=== PATIENT | female | born 1975 | race Caucasian/White ===

== ENCOUNTER 2018-03-31 20:04 | Emergency (ER) | payer OTHER ==
--- NOTE | 2018-03-31 20:11 | PDOC ---
Attending Attestation - HPI HPI: 03/31/18 20:53 The patient is a 42 year old female, with a significant PMH of breast cancer s/ p lumpectomy (last chemotherapy yesterday), who presents to the emergency department with diffuse body aches, nausea with vomiting (non bloody, non bilious), dysuria, chills, non productive cough, and constipation. The patient states her body aches are worse in the lower abdomen and upper thighs bilaterally. The patient states her symptoms feel similar to past UTI. The patient reports she has been taking Zofran 8 mg prescribed from her chemotherapy. The patient also reports taking 600 mg Ibuprofen for her body aches with last dose approx 2 hours ago. The patient denies chest pain, palpitations, shortness of breath, headache, dizziness, lightheadedness, measured fever, diarrhea, melena or hematochezia. Denies frequency, urgency and hematuria. Allergies: NKA - Physicial Exam PE: 03/31/18 20:54 GENERAL: Awake, alert, and fully oriented, in no acute distress HEAD: No signs of trauma EYES: PERRLA, EOMI, sclera anicteric, conjunctiva clear ENT: Auricles normal inspection, hearing grossly normal, nares patent, oropharynx clear without exudates. Moist mucosa NECK: Normal ROM, supple, no lymphadenopathy, JVD, or masses LUNGS: Breath sounds equal, clear to auscultation bilaterally. No wheezes, and no crackles HEART: Regular rate and rhythm, normal S1 and S2, no murmurs, rubs or gallops ABDOMEN: Soft, nontender, normoactive bowel sounds. No guarding, no rebound. No masses EXTREMITIES: Normal range of motion, no edema. No clubbing or cyanosis. No cords, erythema, or tenderness NEUROLOGICAL: Cranial nerves II through XII grossly intact. Normal speech, normal gait SKIN: Warm, Dry, normal turgor, no rashes or lesions noted. <Addy Jiang - Last Filed: 03/31/18 20:53> - Resident Resident Name: Aixa Guzman - ED Attending Attestation I have performed the following: I have examined & evaluated the patient, The case was reviewed & discussed with the resident, I agree w/resident's findings & plan - Medical Decision Making 03/31/18 21:39 Pt's CXR is normal; port is in place. Labs are normal except for leukopenia which is likely due to chemo. 03/31/18 23:34 Pt's lockstitch hemmer is Zachary Mancera [phone] 04/01/18 00:26 I spoke to the senior [employer] consultant doc, who recommends pain management overnight in the ER. call specialist doctor Beckie states that he thinks the patient must be having an adverse reaction to her chemo, and that body aches and pains are not a usual event with chemo. We discussed that the pain is impoved and that labs are normal, except for low WBC count, which he agrees is to be expected with chemo. US normal, pt iis having lower abd pain and we will get a sono of her ovaries and pelvis. 04/01/18 00:37 Patient Name: ROSY QUEZADA THIS IS A PRELIMINARY REPORT FROM [facility]RIGATION OPERATOR DATE OF SERVICE: 2018-03-31 23:46:28 IMAGES: 50 EXAM: Endovaginal pelvic ultrasound and pelvic duplex HISTORY: Lower abdominal pain COMPARISON: None. FINDINGS: Endovaginal pelvic ultrasound:Uterus is anteverted and measures 8.6centimeters in length. The endometrium is 5millimeters in thickness which is normal. There are 1.8 cm and 1.7 cm posterior fundal intramural fibroids. The right ovary measures 3.1centimeters in length, appears normal and demonstrates normal flow. Left ovary measures 2.8centimeters in length appears normal demonstrates normal flow. There is no significant free fluid. Pelvic duplex: There is normal arterial and venous flow in both ovaries. IMPRESSION: Small intramural fibroids. No acute pathology. <Merle Nino - Last Filed: 04/01/18 00:37> Attestations - Attestations 03/31/18 20:54 Documentation prepared by Addy Jiang, acting as medical assisting instructor for Merle Nino MD. <Addy Jiang - Last Filed: 03/31/18 20:53>
[2018-03-31] MEDS ORDERED: SODIUM CHLORIDE 0.9% 500 ML INFUS.BAG IV ONE (20:27)
[2018-03-31] MEDS ORDERED: ACETAMINOPHEN 1000 MG/100 ML VIAL (NON FORMULARY) IVPB ONE (20:30)
--- NOTE | 2018-03-31 20:34 | PDOC ---
History of Present Illness - General Chief Complaint: Pain Stated Complaint: FATIGUE/HEADACHE Time Seen by Provider: 03/31/18 20:10 History Source: Patient Exam Limitations: No Limitations - History of Present Illness Initial Comments: This is a 42 YOF with h/o breast CA s/p lumpectomy and now on chemo (doxorubicin /cyclophosphamide/paclitaxel with last dose XXX, followed by XXX at [facility]) who p/w nausea, vomiting, chills, nonproductive cough, constipation (but last BM was today and normal), burning on urination, and all- over body aches worse in her lower abdomen and the front of both thighs. She denies any measured fever, black/bloody stool, headache, dizziness, lightheadedness, chest pain, SOB, or other symptoms. She has been taking Zofran 8 mg as prescribed for her chemo-related n/v. 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 Past History - Past Medical History Allergies/Adverse Reactions: Allergies Allergy/AdvReac Type Severity Reaction Status Date / Time No Known Allergies Allergy Verified 03/31/18 20:07 Home Medications: Ambulatory Orders Oxycodone HCl/Acetaminophen [Percocet 5/325 -] 1 tab PO Q6H #20 tablet MDD 4 01/12 - Suicide/Smoking/Psychosocial Hx Smoking History: Never smoked Hx Alcohol Use: No Drug/Substance Use Hx: No Review of Systems - Review of Systems Able to Perform ROS?: Yes Constitutional: Yes: Chills, Malaise, Other (all-over body aches). No: Fever, Unexplained wgt Loss HEENTM: No: Nose Congestion, Throat Pain Respiratory: Yes: Cough. No: Shortness of Breath Cardiac (ROS): No: Chest Pain, Palpitations ABD/GI: Yes: Constipated, Nausea, Vomiting, Other (lower abdominal pain). No: Diarrhea : Yes: Burning, Dysuria Musculoskeletal: No: Back Pain, Neck Pain Integumentary: No: Bruising, Rash Neurological: No: Headache, Numbness, Tingling, Weakness, Dizziness Endocrine: No: Unexplained Weight Gain, Unexplained Weight Loss *Physical Exam - Vital Signs Last Vital Signs Temp Pulse Resp BP Pulse Ox 98.3 F 90 20 104/80 98 03/31/18 20:05 08/04/18 20:05 03/31/18 20:05 03/31/18 20:05 03/31/18 20:05 - Physical Exam General Appearance: Yes: Nourished, Appropriately Dressed, Other (nontoxic and generally well appearing adult female who is answering appropriately and accompanied by family, alopecia from chemo). No: Apparent Distress HEENT: positive: EOMI, AIXA, Normal ENT Inspection, Normal Voice, Hearing Grossly Normal. negative: Scleral Icterus (R), Scleral Icterus (L), Nasal Congestion Neck: positive: Trachea midline, Supple. negative: Tender, Rigid Respiratory/Chest: positive: Lungs Clear, Normal Breath Sounds. negative: Respiratory Distress, Crackles, Rhonchi, Stridor, Wheezing Cardiovascular: positive: Regular Rhythm, Regular Rate, S1, S2. negative: Edema , JVD, Murmur Gastrointestinal/Abdominal: positive: Normal Bowel Sounds, Tender (minimal suprapubic ttp), Flat, Soft. negative: Organomegaly, Pulsatile Mass, Guarding Musculoskeletal: positive: Normal Inspection. negative: Decreased Range of Motion, Vertebral Tenderness Extremity: positive: Normal Capillary Refill, Normal Inspection, Normal Range of Motion. negative: Tender, Cyanosis Integumentary: positive: Normal Color, Dry, Warm. negative: Erythema, Rash, Bruising Neurologic: positive: tax specialist II-XII NML intact (grossly), Fully Oriented, Alert, Normal Mood/Affect, Normal Response, Motor Strength 5/5 Heart Score/ECG Review #1 NSR, rate of 60, normal axis and intervals, no ischemic ST-T changes, no other abnormalities ED Treatment Course - LABORATORY CBC & Chemistry Diagram: 03/31/18 20:50 03/31/18 20:50 Medical Decision Making - Medical Decision Making Adult female cancer patient on chemo p/w painful urination, chills, lower abdominal pain, n/v, constipation. Initial Vital Signs Temp Pulse Resp BP Pulse Ox 98.3 F 90 20 104/80 98 03/31/18 20:05 03/31/18 20:05 03/31/18 20:05 03/31/18 20:05 03/31/18 20:05 Exam: As noted in Physical Exam section. DDX IBNLT: UTI, pyelonephritis, cervicitis, PID, TOA, other STD/STI, vaginal lesion, vulvuvaginal candidiasis, interstitial cystitis, neurogenic bladder, renal colic, obstructive uropathy, ectopic, ovarian torsion, ovarian cyst, endometritis, malignancy, hernia, appendicitis, proctitis, sigmoid diverticulitis wwo abscess or perforation, endometriosis, primary dysmenorrhea, etc. W/U ordered: CBCD CMP CPK Serum Preg UA UCx CXR EKG TX ordered: [facility] E[facility]: Reviewed; results as noted in ECG Review section. CXR: Nothing acute. Artifact from T-shirt sequins. Laboratory Tests 03/31/18 03/31/18 03/31/18 20:50 20:50 20:50 WBC 1.5 L* RBC 3.92 Hgb 10.9 Hct 31.5 L MCV 80.5 MCH 27.9 MCHC 34.6 RDW 14.1 Plt Count 155 MPV 7.9 Absolute Neuts (auto) 0.7 Neutrophils % 46.5 Neutrophils % (Manual) 46.0 Lymphocytes % 30.2 Lymphocytes % (Manual) 36.0 Monocytes % 15.4 H Monocytes % (Manual) 13 H Eosinophils % 6.7 H Eosinophils % (Manual) 5.0 H Basophils % 1.2 Nucleated RBC % 0 Platelet Estimate Adequate Platelet Comment No clumping noted Anisocytosis 1+ Macrocytosis 1+ Sodium 143 Potassium 4.3 Chloride 110 H Carbon Dioxide 26 Anion Gap 7 L BUN 9 Creatinine 0.8 Creat Clearance w eGFR > 60 Random Glucose 134 H Calcium 8.6 Total Bilirubin 0.4 AST 41 H ALT 49 Alkaline Phosphatase 60 Creatine Kinase 169 Creatine Kinase Index 0.9 CK-MB (CK-2) 1.66 Total Protein 6.7 Albumin 3.9 Serum , Qual Urine Color Urine Appearance Urine pH Ur Specific [place] Urine Protein Urine Glucose (UA) Urine Ketones Urine Blood Urine Nitrite Urine Bilirubin Urine Urobilinogen Ur Leukocyte Esterase 03/31/18 03/31/18 20:50 21:53 WBC RBC Hgb Hct MCV MCH MCHC RDW Plt Count MPV Absolute Neuts (auto) Neutrophils % Neutrophils % (Manual) Lymphocytes % Lymphocytes % (Manual) Monocytes % Monocytes % (Manual) Eosinophils % Eosinophils % (Manual) Basophils % Nucleated RBC % Platelet Estimate Platelet Comment Anisocytosis Macrocytosis Sodium Potassium Chloride Carbon Dioxide Anion Gap BUN Creatinine Creat Clearance w eGFR Random Glucose Calcium Total Bilirubin AST ALT Alkaline Phosphatase Creatine Kinase Creatine Kinase Index CK-MB (CK-2) Total Protein Albumin Serum , Qual Negative Urine Color Yellow Urine Appearance Slcloudy Urine pH 7.0 Ur Specific [place] 1.012 Urine Protein Negative Urine Glucose (UA) Negative Urine Ketones Negative Urine Blood Negative Urine Nitrite Negative Urine Bilirubin Negative Urine Urobilinogen Negative Ur Leukocyte Esterase Negative Reassessment: Patient states pain still present at same level; 2 mg Morphine ordered. Patient gets immediate relief of bodily pain but states residual pain in lower abdomen. She is requesting a sonogram. TVUS order placed. Dr. Nino speaks with [facility] provider for patient's provider group [facility]. 04/01/18 01:00 TVUS results only abnormality is uterine fibroids. DISCHARGE Reassessment: patient states she wants to go home now; repeat exam is benign. The Pt is appropriate for discharge with close outpatient follow up. Workup is not concerning for emergency-level pathology at this time. Dr. Nino has sent E-Rx for Percocet. The Pt is comfortable with this plan and will follow up with her PCP and CA provider in 1-3 days. She will take OTC pain medications for pain, continue her Zofran for n/v. Specific return precautions are discussed and she will come back to the ER if necessary. *DC/Admit/Observation/Transfer Diagnosis at time of Disposition: Leukopenia due to antineoplastic chemotherapy, Chemotherapy induced nausea and vomiting Abdominal pain Qualifiers: Abdominal location: unspecified location Qualified Code(s): R10.9 - Unspecified abdominal pain Uterine fibroid Qualifiers: Uterine leiomyoma location: unspecified location Qualified Code(s): D25.9 - Leiomyoma of uterus, unspecified - Discharge Dispostion Disposition: HOME Condition at time of disposition: Stable Decision to Admit order: No - Prescriptions Prescriptions: Oxycodone HCl/Acetaminophen [Percocet 5/325 -] 1 tab PO Q6H #20 tablet MDD 4 - Referrals Referrals: Laurie Urban [Primary Care Provider] - - Patient Instructions Printed Discharge Instructions: Coping with Nausea and Vomiting From Chemotherapy, DI for Uterine Fibroids Additional Instructions: You were seen in the ER for abdominal pain and all-over body pain. We did blood and urine labs and a sonogram, and there were no emergency concerns. You have uterine fibroids which could be causing discomfort. Your white blood cell count was low, but this can happen two days after chemotherapy treatment. After our assessment, we do not believe you are having a medical emergency at this time, and we believe you are safe to go home. supervisor looping and take your prescriptions that we are sending electronically to your pharmacy. Please take over the counter pain medications for pain, following the instructions on the medication label. For painful urination, please take pyridium (Azo) which you can get over- the-counter at the pharmacy. This will turn your urine orange and it is nothing to worry about while you are taking this medication. Follow up with your primary doctor and your cancer doctor in 1-3 days. Call their clinic [facility], tell them you were seen in the ER, and tell them you need an appointment. Please come back to the ER at any time, 24 hours a day, for any new or worsening symptoms, like worsened pain, increased or foul-smelling discharge, fever, testicular/scrotal pain or swelling, or other symptoms. If you are having severe or life threatening symptoms, or symptoms that make it unsafe to drive or have someone drive you, please call 911. Print Language: NAURUAN - Post Discharge Activity
[2018-03-31] MEDS ORDERED: ACETAMINOPHEN INJECTION 100 ML IVPB ONE (20:38)
[2018-03-31 21:03] LABS: BASO % 1.2 % (0-2.0); EOS % 6.7 % (0-4.5); HEMATOCRIT 31.5 % (32.4-45.2); HEMOGLOBIN 10.9 GM/dL (10.7-15.3); LYMPH % 30.2 % (8-40); MCH 27.9 pg (25.7-33.7); MCHC 34.6 g/dl (32.0-36.0); MEAN CELL VOLUME 80.5 fl (80-96); MEAN PLT VOLUME 7.9 fl (7.5-11.1); MONO % 15.4 % (3.8-10.2); NEUT % 46.5 % (42.8-82.8); PLATELET COUNT 155 K/MM3 (134-434); RBC 3.92 M/mm3 (3.60-5.2); RDW 14.1 % (11.6-15.6)
[2018-03-31 21:27] LABS: WHITE BLOOD COUNT 1.5 K/mm3 (4.0-10.0)
[2018-03-31 21:28] LABS: ALBUMIN 3.9 g/dl (3.4-5.0); ANION GAP 7 (8-16); BILIRUBIN,TOTAL 0.4 mg/dL (0.2-1.0); BLOOD UREA NITROGEN 9 mg/dL (7-18); CALCIUM 8.6 mg/dL (8.5-10.1); CHLORIDE 110 mmol/L (98-107); CO2 26 mmol/L (21-32); CREATININE 0.8 mg/dL (0.55-1.02); GLUCOSE,RANDOM 134 mg/dL (74-106); POTASSIUM 4.3 mmol/L (3.5-5.1); SGOT/AST 41 U/L (15-37); SGPT/ALT 49 U/L (12-78); SODIUM 143 mmol/L (136-145); TOT PROT 6.7 g/dl (6.4-8.2)
[2018-03-31 21:29] LABS: ALK PHOS 60 U/L (45-117)
[2018-03-31] MEDS ORDERED: morphine CARPU-JECT 4 MG/1 ML DISP.SYRIN IVPUSH ONE (22:11)
[2018-03-31 22:48] LABS: URINE APPEARANCE SLCLOUDY; URINE BILIRUBIN NEGATIVE (<2.0 mg/dL); URINE COLOR YELLOW; URINE GLUCOSE (UA) NEGATIVE (NEGATIVE); URINE KETONE NEGATIVE (NEGATIVE); URINE LEUK ESTERASE NEGATIVE (NEGATIVE); URINE NITRITE NEGATIVE (NEGATIVE); URINE PROTEIN NEGATIVE (NEGATIVE); URINE UROBILINOGEN NEGATIVE mg/dL (0.2-1.0)
[2018-03-31 23:00] LABS: ANISOCYTOSIS 1+; MACROCYTOSIS 1+; PLATELET ESTIMATE ADEQUATE
[2018-03-31] MEDS ORDERED: MORPHINE SULFATE 2 MG/ML VIAL ONE (23:15)
[2018-04-01 01:17] VITALS: BP 128/72; PULSE 75; TEMP 97.9
--- NOTE | 2018-04-01 14:17 | EKG ---
Test Reason : Blood Pressure : / mmHG Vent. Rate : 060 BPM Atrial Rate : 060 BPM P-R Int : 160 ms QRS Dur : 072 ms QT Int : 418 ms P-R-T Axes : 049 048 044 degrees QTc Int : 418 ms NORMAL SINUS RHYTHM NORMAL ECG NO PREVIOUS ECGS AVAILABLE Confirmed by SARA NIETO, NITIN ([id number]) on 04/01/2018 2:16:44 PM Referred By: Confirmed By:NITIN RUIZ MD
== END 2018-04-01 01:18 | disposition home or self-care (01) ==
LOC: JER 20:04
PROC: 3E033NZ Introduction of Analgesics, Hypnotics, Sedatives into Peripheral Vein, Percutaneous Approach (ICD-10-PCS; principal; 2018-03-31)
PROC: 3E0337Z Introduction of Electrolytic and Water Balance Substance into Peripheral Vein, Percutaneous Approach (ICD-10-PCS; 2018-03-31)
DX: D70.1 Agranulocytosis secondary to cancer chemotherapy (principal); C50.919 Malignant neoplasm of unspecified site of unspecified female breast; R11.2 Nausea with vomiting, unspecified; R10.9 Unspecified abdominal pain; D25.9 Leiomyoma of uterus, unspecified
CPT/HCPCS: 36415; 71045-TC-FY; 76830-TC; 80053; 81003; 82550; 82553; 84703; 85025; 87086; 93005; 93010; 99282-25; J0131